=== PATIENT | male | born 1960 | race Two or more races ===

== ENCOUNTER → 2024-11-10 07:17 | Outpatient (CLI) | payer OTHER ==
[2024-11-10 07:53] VITALS: BP 150/71
[2024-11-10 08:00] LABS: HEMATOCRIT 42.8 % (39.0-48.0); HEMOGLOBIN 14.6 g/dL (13-16.00); MEAN CELL VOLUME 95.8 fL (80.0-100.00); MEAN CORPUSCULAR HEMOGLOBIN 32.8 pg (27.00-32.0); MEAN CORPUSCULAR HGB CONC 34.2 g/dl (32.0-36.0); PLATELET COUNT 486 K/uL (150-450); RED BLOOD COUNT 4.46 M/uL (4.00-6.00); RED CELL DISTRIBUTION WIDTH 12.8 % (11.5-14.5)
[2024-11-10 08:23] LABS: COL EPI 79 SECONDS (82-175)
[2024-11-10 08:24] LABS: INR 0.96; PARTIAL THROMBOPLASTIN TIME 25.4 SECONDS (22.0-34.0); PROTHROMBIN TIME 10.5 SECONDS (9.0-11.5)
[2024-11-10 08:30] LABS: PH,URINE 5.5 (5.0-8.0); URINE APPEARANCE Clear; URINE BILIRRUBIN Negative (NEGATIVE); URINE BLOOD Negative; URINE COLOR Yellow; URINE GLUCOSE Negative (NEGATIVE); URINE KETONE Negative (NEGATIVE); URINE LEUKOCYTE Negative; URINE NITRATE Negative; URINE PROTEIN Negative (NEGATIVE); URINE UROBILINOGEN 0.2 E.U./dl
[2024-11-10 08:31] LABS: URINE BACTERIA 8.5 uL (0.0-1933)
[2024-11-10 09:20] LABS: ALBUMIN 3.4 gm/dL (3.4-5.0); BILIRUBIN TOTAL 0.16 mg/dL (0.3-1.2); GFR 74.99; GLOBULINA 3.6 G/DL (2.4-3.5); POTASSIUM 5.85 mEq/L (3.5-5.1)
[2024-11-10 09:33] LABS: URINE EPITHELIAL CELLS 0.3 uL (0.0-38.8); URINE RBC 1.1 uL (0.0-20.8); URINE WBC 1.1 uL (0.0-23.2)
== END | disposition home or self-care (01) ==
LOC: LAB 07:17
PROVIDERS: ATTEND Orthopaedic Surgery
DX: D64.9 Anemia, unspecified (principal); E88.89 Other specified metabolic disorders; D68.8 Other specified coagulation defects; N39.0 Urinary tract infection, site not specified; Z22.322 Carrier or suspected carrier of Methicillin resistant Staphylococcus aureus; E11.9 Type 2 diabetes mellitus without complications; I10 Essential (primary) hypertension

== ENCOUNTER 2024-11-10 08:04 | Outpatient (CLI) | payer OTHER | END 2024-11-10 08:14 | disposition home or self-care (01) | LOC: RAD 08:04 | PROVIDERS: ATTEND Orthopaedic Surgery | DX: M25.561 Pain in right knee (principal); M25.562 Pain in left knee; Z76.89 Persons encountering health services in other specified circumstances ==

== ENCOUNTER 2024-11-20 10:19 | Outpatient (CLI) | payer OTHER ==
[2024-11-20 11:00] LABS: HEMATOCRIT 43.4 % (39.0-48.0); MEAN CELL VOLUME 95.9 fL (80.0-100.00); MEAN CORPUSCULAR HEMOGLOBIN 33.3 pg (27.00-32.0); MEAN CORPUSCULAR HGB CONC 34.7 g/dl (32.0-36.0); PLATELET COUNT 388 K/uL (150-450); RED BLOOD COUNT 4.52 M/uL (4.00-6.00)
== END 2024-11-20 10:20 | disposition home or self-care (01) ==
LOC: LAB 10:19
PROVIDERS: ATTEND Orthopaedic Surgery
DX: D64.9 Anemia, unspecified (principal)

== ENCOUNTER 2024-11-24 12:41 | Inpatient (IN) | payer OTHER ==
[~2024-11-24] VITALS: Ht 167.6 cm; Wt 74.8 kg
[2024-11-24] MEDS ORDERED: SYNTHROID50 MCG PO (13:01)
[2024-11-24 13:07] VITALS: BP 150/71
[2024-11-25] MEDS ORDERED: LIDOCAINE HCL 1%/EPINEPHRINE 20ML VIAL IJ ONE ×3 (08:14→08:30)
[2024-11-25] MEDS ORDERED: BUPIVACAINE HCL/MPF 0.5% 30ML VIAL ONE ×2 (08:14→08:27)
[2024-11-25] MEDS ORDERED: TRANEXAMIC ACID 100MG/1ML (1000MG) AMPUL IV ONE ×3 (08:27→08:30)
[2024-11-25] MEDS ORDERED: KETOROLAC TROMETHAMINE 60 MG VIAL IM ONE ×2 (08:27→08:45)
[2024-11-25] MEDS ORDERED: VANCOMYCIN HCL 1,000 MG VIAL ONE (08:28)
[2024-11-25] MEDS ORDERED: CEFAZOLIN SODIUM 1,000 MG VIAL ONE (08:28)
[2024-11-25] MEDS ORDERED: VANCOMYCIN HCL 1,000 MG VIAL IR ONE (08:30)
[2024-11-25] MEDS ORDERED: BUPIVACAINE HCL 30 ML VIAL IJ ONE (08:30)
[2024-11-25] MEDS ORDERED: CEFAZOLIN SODIUM 1,000 MG VIAL IV ONE (08:30)
[2024-11-25] MEDS ORDERED: MORPHINE SULFATE 4 MG/ML VIAL IV ONE ×2 (08:45→12:50)
[2024-11-25] MEDS ORDERED: ONDANSETRON 4 MG TAB.RAPDIS PO PRN (11:45)
[2024-11-25] MEDS ORDERED: MEPERIDINE HCL/PF 50 MG/ML VIAL IM PRN (11:45)
[2024-11-25] MEDS ORDERED: PROMETHAZINE HCL 50 MG/ML AMPUL IM PRN (11:45)
[2024-11-25] MEDS ORDERED: ONDANSETRON HCL 2 MG/ML VIAL IV PRN (11:45)
[2024-11-25] MEDS ORDERED: SODIUM CHLORIDE 0.45 % 1,000 ML IV SCH (11:45)
[2024-11-25] MEDS ORDERED: TRAMADOL HCL 50 MG TABLET PO PRN (11:45)
[2024-11-25] MEDS ORDERED: PANTOPRAZOLE SODIUM 40 MG TABLET.DR PO NR (13:00)
[2024-11-25] MEDS ORDERED: ACETAMINOPHEN 325 MG TABLET PO SCH (13:00)
[2024-11-25] MEDS ORDERED: KETOROLAC TROMETHAMINE 10 MG TABLET PO SCH (13:00)
[2024-11-25 13:40] VITALS: BP 160/79; O2SAT 95
[2024-11-25 16:55] VITALS: BP 162/89; O2SAT 96
[2024-11-25] MEDS ORDERED: CEFAZOLIN SODIUM 1,000 MG VIAL IV SCH (17:00)
[2024-11-25] MEDS ORDERED: CELECOXIB 200 MG CAPSULE PO SCH (17:00)
[2024-11-25] MEDS ORDERED: DEXTROSE 50 % IN WATER 0.5 G/ML DISP.SYRIN IV PRN (20:30)
[2024-11-25] MEDS ORDERED: INSULIN LISPRO 1,000 UNIT/10 ML UNITS SUBCUTANEO PRN (20:30)
[2024-11-26 00:30] VITALS: BP 143/74; O2SAT 96
[2024-11-26] MEDS ORDERED: LEVOTHYROXINE SODIUM 50 MCG TABLET PO SCH (06:00)
[2024-11-26 06:28] LABS: HEMATOCRIT 36.2 % (39.0-48.0); HEMOGLOBIN 12.7 g/dL (13-16.00); MEAN CELL VOLUME 95.2 fL (80.0-100.00); MEAN CORPUSCULAR HEMOGLOBIN 33.3 pg (27.00-32.0); PLATELET COUNT 247 K/uL (150-450); RED BLOOD COUNT 3.81 M/uL (4.00-6.00)
[2024-11-26 08:16] VITALS: BP 132/73; O2SAT 97
[2024-11-26] MEDS ORDERED: RIVAROXABAN 10 MG TAB PO SCH (09:00)
[2024-11-26] MEDS ORDERED: PANTOPRAZOLE SODIUM 40 MG TABLET.DR PO SCH (09:00)
[2024-11-26 16:40] VITALS: BP 148/61; O2SAT 98
[2024-11-27 00:20] VITALS: BP 123/55; O2SAT 97
[2024-11-27 06:18] LABS: HEMATOCRIT 33.5 % (39.0-48.0); HEMOGLOBIN 11.5 g/dL (13-16.00); MEAN CELL VOLUME 95.8 fL (80.0-100.00); MEAN CORPUSCULAR HEMOGLOBIN 32.9 pg (27.00-32.0); MEAN CORPUSCULAR HGB CONC 34.4 g/dl (32.0-36.0); PLATELET COUNT 226 K/uL (150-450); RED BLOOD COUNT 3.49 M/uL (4.00-6.00); RED CELL DISTRIBUTION WIDTH 12.5 % (11.5-14.5)
[2024-11-27] MEDS ORDERED: SENNA/DOCUSATE SODIUM 1 TAB TABLET PO SCH (09:00)
[2024-11-27 09:07] VITALS: BP 145/72; O2SAT 97
[2024-11-27 14:58] LABS: BILIRUBIN TOTAL 0.42 mg/dL (0.3-1.2); CALCIUM 9.1 mg/dL (8.5-10.1); CREATININE SERUM 0.87 mg/dL (0.70-1.30); GFR 87.79; GLOBULINA 2.9 G/DL (2.4-3.5); POTASSIUM 3.97 mEq/L (3.5-5.1); TOTAL PROTEIN 5.9 gm/dL (6.4-8.2)
== END 2024-11-27 17:24 | DRG 470 ==
LOC: SURH → O/R 11-25 10:41 → SURG 11-25 10:41 → SURH 11-25 15:44 → SURG 11-27 17:24
PROVIDERS: ADMIT Orthopaedic Surgery; ATTEND Orthopaedic Surgery
PROC: 0SRC0J9 Replacement of Right Knee Joint with Synthetic Substitute, Cemented, Open Approach (ICD-10-PCS; principal; 2024-11-25 07:00)
DX: M17.11 Unilateral primary osteoarthritis, right knee (principal)

== ENCOUNTER 2025-04-01 14:41 | Outpatient (CLI) | payer OTHER ==
[~2025-04-01 14:41] MED LIST: SYNTHROID50 MCG PO
== END 2025-04-01 14:49 | disposition home or self-care (01) ==
LOC: RAD 14:41
DX: M25.571 Pain in right ankle and joints of right foot (principal)

== ENCOUNTER 2025-05-14 11:53 | Emergency (ER) | payer OTHER ==
[~2025-05-14] VITALS: Ht 165.1 cm; Wt 68.0 kg
[2025-05-14] MEDS ORDERED: MORPHINE SULFATE 4 MG/ML VIAL IV ONE (12:30)
[2025-05-14 13:33] LABS: ALT/SGPT 23.0 U/L (12-78); AST/SGOT 11.0 U/L (15-37); BILIRUBIN TOTAL 0.25 mg/dL (0.3-1.2); BUN CREA RATIO 16.0 (7.0-25.0); CREATININE SERUM 0.93 mg/dL (0.70-1.30); GFR 81.29; GLOBULINA 3.5 G/DL (2.4-3.5); GLUCOSE FASTING 116.0 mg/dL (65-100); OSMOLALITY SERUM 287.0 MOSM/KG (275-295)
[2025-05-14 13:53] LABS: BASO % 0.8 % (0.1-1.2); EOS # 0.10 (0.04-0.54); EOS % 1.0 % (0.7-7.0); LYMPH # 2.70 (1.18-3.74); LYMPH % 26.8 % (19.3-53.1); MEAN PLATELET VOLUME 9.80 fl (9.4-12.4); MONO # 0.69 (0.24-0.82); MONO % 6.8 % (4.7-12.5); NEUT # 6.49 (1.56-6.13); NEUT % 64.3 % (34.0-71.1); RED CELL DISTRIBUTION WIDTH 13.4 % (11.6-14.4)
[2025-05-14 13:58] LABS: ERYTHROCYTE SEDIMENTATION RATE 24 mm/hr (0-20)
[2025-05-14] MEDS ORDERED: TRAMADOL HCL E100 MG PO (16:52)
[2025-05-14] MEDS ORDERED: TRAMADOL HCL 50 MG TABLET PO ONE (17:00)
== END 2025-05-14 17:09 | disposition home or self-care (01) ==
LOC: ER 13:48
PROVIDERS: Emergency Medicine
DX: M79.606 Pain in leg, unspecified (principal); M17.11 Unilateral primary osteoarthritis, right knee; E03.8 Other specified hypothyroidism; Z91.013 Allergy to seafood; Z91.041 Radiographic dye allergy status
CPT/HCPCS: 36415; 73560; 93926; 93971; 96365; 99284; J2270